=== PATIENT | male | born 1945 | race Caucasian/White ===

== ENCOUNTER → 2016-11-08 | Outpatient (CLI) | payer MEDICARE ==
[~2016-11-08] MED LIST: GLUCOPHAGE1000 MG PO; XARELTO20 MG PO
[2016-11-08 14:22] LABS: BUN/CREATININE RATIO 17 (0-10)
== END ==
LOC: LAB 13:31
PROVIDERS: Physician Assistant
DX: I10 Essential (primary) hypertension (principal); I48.91 Unspecified atrial fibrillation; R60.9 Edema, unspecified; R06.02 Shortness of breath
CPT/HCPCS: 36415; 80048; 83880

== ENCOUNTER → 2016-11-15 | Outpatient (CLI) | payer MEDICARE | LOC: LAB 10:41 | DX: I20.9 Angina pectoris, unspecified (principal); I48.91 Unspecified atrial fibrillation; R60.9 Edema, unspecified; R06.02 Shortness of breath | CPT/HCPCS: 71020 ==

== ENCOUNTER → 2016-11-22 | Outpatient (CLI) | payer MEDICARE | LOC: HEART 5 09:30 | DX: I20.9 Angina pectoris, unspecified (principal); I10 Essential (primary) hypertension; I48.91 Unspecified atrial fibrillation | CPT/HCPCS: 93306 ==

== ENCOUNTER → 2022-02-08 | Outpatient (CLI) | payer MEDICARE | LOC: KOH-I 08:22 | DX: N28.1 Cyst of kidney, acquired (principal) | CPT/HCPCS: 76775 ==

== ENCOUNTER → 2022-04-04 | Outpatient (CLI) | payer MEDICARE | LOC: EXRD 11:27 | DX: M54.2 Cervicalgia (principal); M47.812 Spondylosis without myelopathy or radiculopathy, cervical region | CPT/HCPCS: 72040 ==

== ENCOUNTER → 2022-04-27 | Outpatient (CLI) | payer MEDICARE | LOC: ECHO 09:34 | DX: I48.91 Unspecified atrial fibrillation (principal); R06.02 Shortness of breath | CPT/HCPCS: ECHO; 93306 ==